=== PATIENT | female | born 1945 | race Caucasian/White ===

== ENCOUNTER 2016-12-13 07:11 | Outpatient (CLI) ==
--- NOTE | 2016-12-13 08:39 | US ---
Examination: Saleh-scale and color Doppler ultrasonographic imaging of the abdomen in real time. Comparison: None available. Reason for study: Right upper quadrant pain. FINDINGS: Ultrasonographic evaluation of the abdomen was somewhat limited secondary to the patient' s body habitus. The liver measures approximately 14.1 cm in length with slightly decreased appearing echotexture, no rmal antegrade portal flow, and no intrahepatic ductal dilatation. No obvious lesions are seen with in the liver parenchyma. There is no perihepatic free fluid. The gallbladder has been removed. The common bile duct is within normal limits measuring 0.34 cm in diameter without obvious intralumi nal stone or polyp. The partially imaged pancreas is unremarkable without obvious ductal dilatation. The IVC and aorta are patent without obvious aortic dilatation. The spleen measures approximately 9.2 x 3.8 x 4.1 cm with normal appearing echotexture. The right kidney measures approximately 11.4 x 4.3 x 4.6 cm without obvious hydronephrosis or nephro lithiasis. The left kidney measures approximately 10.4 x 5.7 with 5.0 cm without obvious hydronephrosis or neph rolithiasis. The bladder was unremarkable without obvious intraluminal stone or mass lesion. Impression: 1. Technically limited study secondary to patient body habitus. 2. No obvious acute findings were seen on ultrasonographic evaluation of the abdomen.
== END 2016-12-13 07:12 | disposition home or self-care (01) ==
LOC: RAD 07:11
PROVIDERS: ATTEND Family Medicine
DX: R10.11 Right upper quadrant pain (principal)

== ENCOUNTER 2018-04-03 13:35 | Outpatient (CLI) | END 2018-04-03 13:36 | disposition home or self-care (01) | LOC: FCC-LAB 13:35 | PROVIDERS: ATTEND Family Medicine | DX: R30.0 Dysuria (principal) | CPT/HCPCS: 87086 ==